=== PATIENT | male | born 1995 | race Caucasian/White ===

== ENCOUNTER 2022-05-24 15:40 | Emergency (ER) | payer SELFPAY | END 2022-05-24 20:10 | disposition left against medical advice (07) | LOC: MW.ED 15:40 | DX: Z53.21 Procedure and treatment not carried out due to patient leaving prior to being seen by health care provider (principal) ==

== ENCOUNTER 2022-12-17 08:06 | Day surgery (SDC) | payer OTHER ==
[~2022-12-17 08:06] MED LIST: Acetaminophen 1,000 MG in Premix Bag 1 BAG IV SCH; Lactated Ringers 1,000 ML IV SCH; Pregabalin 75 MG Cap PO SCH; ceFAZolin 2 GM in Premix Bag 1 BAG IV SCH
[2022-12-17] MEDS ORDERED: HYDROmorphone 1 MG/ML Syringe IVPUSH PRN (08:34)
[2022-12-17] MEDS ORDERED: Metoclopramide 10 MG/2 ML SDV IVPUSH PRN (08:34)
[2022-12-17] MEDS ORDERED: fentaNYL 50 MCG/ML SDV IVPUSH PRN (08:34)
[2022-12-17] MEDS ORDERED: Morphine 2 MG/ML SYRINGE IVPUSH PRN (08:34)
[2022-12-17] MEDS ORDERED: Naloxone 0.4 MG/ML SDV IVPUSH PRN (08:34)
[2022-12-17] MEDS ORDERED: Ondansetron 4 MG/2 ML SDV IVPUSH PRN (08:34)
[2022-12-17] MEDS ORDERED: Albuterol 0.083% 2.5 MG/3 ML Neb Soln NEB PRN (08:34)
[2022-12-17] MEDS ORDERED: fentaNYL 100 MCG/2 ML SDV ONE (09:09)
[2022-12-17] MEDS ORDERED: Propofol 200 MG/20 ML SDV ONE (09:09)
[2022-12-17] MEDS ORDERED: Dexmedetomidine 200 MCG/2 ML SDV ONE (09:09)
[2022-12-17] MEDS ORDERED: Rocuronium Bromide 50 MG/5 ML Syringe ONE (09:22)
[2022-12-17] MEDS ORDERED: Bupivacaine 0.25% 30 ML SDV ONE (11:46)
[2022-12-17] MEDS ORDERED: Bupivacaine 0.5% 30 ML SDV ONE (11:47)
[2022-12-17] MEDS ORDERED: Magnesium Sulfate (4.06 MEQ/ML) 5 GM/10 ML SDV ONE (12:08)
[2022-12-17] MEDS ORDERED: ceFAZolin 2 GM Vial ONE (12:09)
[2022-12-17] MEDS ORDERED: Dexamethasone 4 MG/ML 5 ML MDV ONE (12:14)
[2022-12-17] MEDS ORDERED: Ketorolac 30 MG/ML SDV ONE (12:50)
[2022-12-17] MEDS ORDERED: Sugammadex Sodium 200 MG/2 ML VIAL ONE (12:50)
[2022-12-17] MEDS ORDERED: Ondansetron 4 MG/2 ML SDV ONE (12:50)
== END 2022-12-17 16:09 | disposition home or self-care (01) ==
LOC: MW.SDS 08:06
PROVIDERS: ATTEND Surgery
DX: K43.1 Incisional hernia with gangrene (principal); Z87.891 Personal history of nicotine dependence; Z98.890 Other specified postprocedural states; Z79.899 Other long term (current) drug therapy
CPT/HCPCS: 00840; 64488; A9270-GY; J0690; J1100; J1885; J2405; J2704; J3010; J3475; J3490; J7120